=== PATIENT | female | born 1960 | race Caucasian/White ===

== ENCOUNTER 2020-07-11 14:25 | Outpatient (REF) | payer OTHER, SELFPAY | END 2020-07-11 14:26 | disposition home or self-care (01) | LOC: HO.LNP 14:25 | PROVIDERS: Visit Provider Nurse Practitioner Family | DX: Z20.828 Contact with and (suspected) exposure to other viral communicable diseases (principal) | CPT/HCPCS: U0003 ==

== ENCOUNTER 2020-07-23 09:19 | Outpatient (REF) | payer OTHER, SELFPAY | END 2020-07-23 09:20 | disposition home or self-care (01) | LOC: HO.HMGCLDS 09:19 | PROVIDERS: Visit Provider Internal Medicine | DX: Z20.828 Contact with and (suspected) exposure to other viral communicable diseases (principal) | CPT/HCPCS: C9803; U0003 ==

== ENCOUNTER 2020-08-07 09:22 | Outpatient (REF) | payer OTHER, SELFPAY | END 2020-08-07 09:23 | disposition home or self-care (01) | LOC: HO.HMGCLDS 09:22 | PROVIDERS: Visit Provider Internal Medicine | DX: Z20.828 Contact with and (suspected) exposure to other viral communicable diseases (principal) | CPT/HCPCS: C9803; U0003 ==

== ENCOUNTER 2021-03-05 17:33 | Inpatient (IN) | payer OTHER, SELFPAY ==
--- NOTE | 2021-03-05 | ECG_ITS ---
Test Reason : EPIGASTRIC PAIN Blood Pressure : / mmHG Vent. Rate : 100 BPM Atrial Rate : 100 BPM P-R Int : 134 ms QRS Dur : 070 ms QT Int : 338 ms P-R-T Axes : 036 059 034 degrees QTc Int : 436 ms Normal sinus rhythm Septal infarct (cited on or before 12-JAN-2018) Abnormal ECG When compared with ECG of 12-JAN-2018 16:58, No significant change was found Referred By: Generic ED Physician Electronically Signed By:NATASHA ESPANA
--- NOTE | ~2021-03-05 | CT_ITS ---
EXAMINATION: CT ANGIOGRAM OF THE CHEST WITH AND WITHOUT CONTRAST CT ABDOMEN PELVIS WITH CONTRAST CLINICAL INFORMATION: Reason for Exam tight pulling pain, ? aneurysm. Abdominal pain. COMPARISON: No pertinent prior studies are available for comparison. TECHNIQUE: Prior to contrast administration, noncontrast localization images were obtained. Subsequently, multidetector volumetric imaging was performed from the thoracic inlet to the pubic symphysis through the chest, abdomen, and pelvis following the administration of 85 mL Omnipaque 350 intravenous contrast. Images through the chest were obtained during the arterial phase of enhancement. Abdomen and pelvis images were obtained during the portal venous phase of enhancement. No contrast reaction reported Sagittal, coronal, and MIP oblique sagittal (through the chest only) reformatted images were obtained on the CT workstation, uploaded to PACS, and reviewed. Total exam dose-length product: 811 mGy-cm This CT examination was performed using dose optimization techniques as appropriate, variously including the following: *Automated exposure control *Adjustment of mA and/or kV according to patient size (this includes techniques or standardized protocols for targeted exams where dose is matched to indication/reason for exam; i.e. extremities or head) *Use of iterative reconstruction technique FINDINGS: VASCULATURE: THORACIC AORTA: Ascending thoracic aorta is normal in caliber, measuring up to 3.1 cm in diameter. There is mild aneurysmal dilatation beginning at the level of the isthmus where the proximal descending thoracic aorta is focally aneurysmal up to 3.2 cm in diameter. The descending thoracic aorta returns to normal caliber by the level of the left atrium (2.9 cm) and measures 2.9 cm at the level of the diaphragmatic hiatus. There is mild atherosclerotic disease in the thoracic aorta without appreciable dissection or intimal ulceration. No appreciable intramural hematomas on these images. SUPRAAORTIC ARTERIES: Normal 3 vessel branching pattern. Mild stenosis of the right subclavian artery near its origin. Common carotid arteries and vertebral arteries are patent. 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 PULMONARY ARTERIES: No central or segmental pulmonary emboli. NONVASCULAR FINDINGS: LUNG: No focal consolidation, nodules or masses. Mild dependent atelectasis. Central airways are clear. PLEURA: No pleural effusion or pneumothorax. MEDIASTINUM: Normal heart size. No pericardial effusion. No hilar or mediastinal lymphadenopathy. No evidence of septal bowing or right heart strain. Normal thyroid gland. CHEST WALL/AXILLA: No axillary or internal mammary lymphadenopathy. ABDOMEN/PELVIS: LIVER, GALLBLADDER AND BILIARY TREE: The liver is normal in size, shape, and attenuation. No focal hepatic lesion or biliary ductal dilatation is present. The gallbladder is unremarkable with no evidence of radiopaque gallstones, gallbladder wall thickening, or obvious pericholecystic inflammatory changes. PANCREAS: There is subtle fat stranding just medial to the pancreatic head, potentially due to duodenitis. Groove pancreatitis is less likely. A few punctate foci of calcification are present at the pancreatic head along the margin and at the pancreatic tail. No focal pancreatic mass lesion. No pancreatic ductal dilatation. SPLEEN: Normal size. No focal lesion. ADRENAL GLANDS: Normal; no mass. KIDNEYS AND URETERS: The kidneys are normal in size, shape, and attenuation. Multiple calcifications in the renal sinuses are favored to be vascular in nature. No discrete calculi are identified. No hydronephrosis or hydroureter. GASTROINTESTINAL TRACT: There is mild wall thickening and subtle surrounding fat stranding at the first and second portions visualized, potentially due to mild duodenitis of peptic ulcer disease. Stomach, small bowel, and colon are normal in caliber. There is mild colonic diverticulosis. No evidence of acute diverticulitis. Normal appendix. No intraperitoneal free fluid or free air. ABDOMINAL WALL: No significant hernia is appreciated. LYMPHOVASCULAR STRUCTURES: Atherosclerotic calcifications are present in the abdominal aorta and iliac arteries. No aneurysmal dilatation. BLADDER: No focal mass or wall thickening seen. No bladder calculi. PELVIC VISCERA: Normal CT appearance of the uterus. No adnexal mass seen. OSSEOUS STRUCTURES: There is marked facet arthropathy at L4-L5 with minimal grade 1 anterolisthesis of L4 on L5. Minimal degenerative disc disease in the lumbar spine. More mild to moderate degenerative disc disease is present in the thoracic spine. No acute osseous abnormalities. 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 CT/CT abdomen pelvis w con IMPRESSION: CHEST: 1. Mild aneurysmal dilatation of the proximal descending thoracic aorta (3.2 cm). No evidence of acute dissection, intramural hematoma, or rupture. No evidence of pulmonary emboli. 2. No acute pulmonary findings. ABDOMEN: 1. Bowel wall thickening in the proximal duodenum with surrounding fat stranding, most concerning for a mild focal duodenitis or peptic ulcer disease. No evidence of perforation. Primary pancreatitis with reactive duodenal inflammation is felt to be less likely, though recommend correlation with serum amylase and lipase. 2. Multiple punctate foci of parenchymal calcification which suggest changes of chronic pancreatitis. 3. Mild colonic diverticulosis without evidence of acute diverticulitis.
[2021-03-05 18:30] VITALS: BP 140/78; PULSE 106; RESP 18; TEMP 36.6; O2SAT 96; BMI 27.3
[2021-03-05 19:03] LABS: Hematocrit 46.5 % (37-47); Hemoglobin 15.4 g/dl (12.0-16.0); Mean Corpuscular HGB Conc 33.1 g/dl (31.0-35.0); Mean Corpuscular Hemoglobin 29.7 pg (27.0-33.0); Mean Corpuscular Volume 89.8 fL (80-98); Mean Platelet Volume 10.7 fL (9.4-12.3); Platelet Count 300 X10*3/uL (160-400); Red Blood Count 5.18 X10*6/uL (4.20-5.50); Red Cell Distribution Width 13.6 % (11.0-16.0); White Blood Count 13.2 X10*3/uL (4.8-10.8)
[2021-03-05 19:26] LABS: Alanine Aminotransferase 8 U/L (0-31); Albumin Level 4.4 g/dL (3.5-5.0); Alkaline Phosphatase 91 U/L (39-117); Anion Gap 15 (12-20); Aspartate Amino Transferase 15 U/L (5-31); Bilirubin Total 0.7 mg/dL (0.0-1.0); Blood Urea Nitrogen 8 mg/dL (9-16); Calcium 9.9 mg/dL (8.4-10.2); Carbon Dioxide 22 mmol/L (22-29); Chloride 107 mmol/L (96-108); Creatinine Clr Calc Pharmacy 58.8; Estimated Glomerular Filt Rate > 60; Glucose Random 145 mg/dL (60-115); Potassium 4.3 mmol/L (3.3-5.1); Sodium 140 mmol/L (135-145); Total Protein 7.7 g/dL (6.5-8.0)
[2021-03-05 19:32] LABS: Troponin-I High Sensitivity < 3.5 ng/L (<3.5-17.0)
[2021-03-05 19:56] VITALS: BP 167/65; PULSE 98; RESP 18; TEMP 37.2; O2SAT 95
--- NOTE | 2021-03-05 19:59 | PC.NURSE ---
patient a&ox3, vss, quality assurance monitor final nsr 90s, pt c/o 06/09 epigastric pain that radiates under breasts to back. denies nausea, pt states she has been constipated lately- lbm yesterday, family at bedside, will continue to monitor.
--- NOTE | 2021-03-05 20:15 | PC.NURSE ---
pt to radiology
--- NOTE | 2021-03-05 20:29 | ED_ITS ---
HPI - Abdominal Pain General Chief Complaint: Abdominal Pain Stated Complaint: pain in upper body Time Seen by Provider: 03/05/21 23:24 Source: patient Mode of arrival: ambulatory Limitations: no limitations History of Present Illness HPI narrative: 61-year-old female with past medical history of diabetes presents with 2 weeks of epigastric pain with a bandlike pressure that radiates across her abdomen into her back, poor p.o. intake, pain greater after eating, and unable to get comfortable for the past 2 days. States that she feels better curled up in a position, it does not matter what side she is on, has more pain when standing up straight or sitting. She does not report any illicit drug use or alcohol use, denies chest pain and pressure, abdominal distention, constipation, inability to pass flatus, edema, weakness, headache, or changes in vision. MD elicited complaint: abdominal pain Pertinent past history: gastritis Onset (ago): week(s) ( To) Pain Consistency: constant Location: epigastric Severity: severe Quality: aching and other ( pressure) Radiation: L flank and R flank Exacerbating factors: eating and movement Relieving factors: nothing Context: other ( of her father) Associated symptoms: nausea and anorexia Related Data Home Medications Medication Instructions Recorded Confirmed atorvastatin 10 mg tablet 10 mg PO DAILY 07/11/20 blood sugar diagnostic #10 ea 07/11/20 blood-glucose meter #1 ea 07/11/20 flu vac [id number] 36mos up(PF) ml IM 07/11/20 lancets 28 gauge #100 ea 07/11/20 metformin 500 mg tablet,extended 500 mg PO QAM 07/11/20 release 24 hr nystatin 100,000 unit/gram topical TOPICAL BID PRN 07/11/20 cream Allergies Allergy/AdvReac Type Severity Reaction Status Date / Time amoxicillin [AMOXICILLIN] Allergy Intermediate THROAT Unverified 07/11/20 09:46 CLOSES, HIVES Review of Systems Review of Systems Constitutional: No Weight loss, No Fever, No Chills, No Night Sweats, No Fatigue, No Malaise ENT/Mouth: No Hearing loss, No Ear Pain, No Nasal Congestion, No Sinus Pain, No Hoarseness, No sore throat, No Rhinorrhea, No Swallowing Difficulty Eyes: No Eye Pain, No Swelling, No Redness, No Foreign Body, No Discharge, No Vision Changes Cardiovascular: No Chest Pain, No SOB, No Dyspnea on Exertion, No Orthopnea, No Edema, No Palpitations Respiratory: No Cough, No Sputum, No Wheezing, No Smoke Exposure, No Dyspnea Gastrointestinal: Positive Nausea, no Vomiting, no Diarrhea, positive abdominal Pain, No Hematochezia, No Melena Genitourinary: no irregular bleeding, No Dysuria, No Urinary Frequency, No Hematuria, No Urinary Incontinence, No Urgency, No Flank Pain, No Urinary Flow Changes, No Hesitancy Musculoskeletal: No joint pain, No Myalgias, No Joint Swelling Skin: No Skin Lesions, No rash Neuro: No Weakness, No Numbness, No Paresthesias, No Loss of Consciousness, No Dizziness, No Headache Psych: No Anxiety/Panic, No Depression, No SI/HI/AH/VH, No Social Issues Heme/Lymph: No Bruising, No Bleeding,No Lymphadenopathy Endocrine: No Polyuria, No Polydipsia, No Temperature Intolerance Yes all other systems are reviewed and are negative Physical Exam Vital Signs: Vital Signs: Last Vital Signs Temp 99.0 F 03/05/21 19:56 Pulse 90 03/05/21 21:41 Resp 17 03/05/21 21:41 BP 160/69 H 03/05/21 21:41 Pulse Ox 93 03/05/21 21:41 Body Mass Index 27.3 Appearance: Alert. Oriented X3. moderate distress. Eyes: Pupils equal, round and reactive to light. ENT: Pharynx normal. moist mucous membranes Neck: Normal inspection. Neck supple. CVS: Normal heart rate and rhythm. Pulses normal. Respiratory: No respiratory distress. Breath sounds normal. Abdomen: Soft and tender to epigastric, right and left upper quadrants, negative psoas, no rigidity or rebound noted. Skin: Skin warm and dry. Normal skin color. Normal skin turgor. Extremities: No lower extremity edema. Moves all extremities against resistance. Neuro: No motor deficit. No sensory deficit. Cranial nerves 2-12 intact. Course Course Course Narrative: Patient presents with 2 weeks of epigastric pain with bandlike pressure radiating across the diaphragm and in the flanks. States that pain is worse after eating, and increases with sitting up and or standing. Will order chest abdomen pelvic CT with contrast to rule out aneurysm, PUD, pancreatitis, and acute abdomen. White count 13.3, other labs unremarkable. Urinalysis is negative. COVID is negative. CT scan of abdomen and pelvis and chest shows pancreatitis, duodenitis consistent with peptic ulcer disease. Discussion with hospitalist regarding plan to admit. Consultations Consultation #1: Luis Fernando PAZ - Abdominal Pain Differential Diagnosis Differential diagnosis: Likely abdominal pain, aortic dissection, acute appendicitis, calculus of kidney, diverticulitis, mesenteric ischemia, pancreati tis, peptic ulcer disease, renal colic and small bowel obstruction Medical Records Attestation: I reviewed the patient's medical records. Lab Data Attestation: I reviewed the patient's lab results. Result diagrams: 03/05/21 18:49 03/05/21 18:49 Labs: Lab Results 03/05/21 03/05/21 03/05/21 Range/Units 18:49 18:49 18:49 WBC 13.2 H (4.8-10.8) X10*3/uL RBC 5.18 (4.20-5.50) X10*6/uL Hgb 15.4 (12.0-16.0) g/dl Hct 46.5 (37-47) % MCV 89.8 (80-98) fL MCH 29.7 (27.0-33.0) pg MCHC 33.1 (31.0-35.0) g/dl RDW 13.6 (11.0-16.0) % Plt Count 300 (160-400) X10*3/uL MPV 10.7 (9.4-12.3) fL Absolute Nucleated RBC 0.000 (0.0-0.012) X10*3/uL Nucleated RBC % (auto) 0.0 (0.0-0.2) /100WBC Sodium 140 (135-145) mmol/L Potassium 4.3 (3.3-5.1) mmol/L Chloride 107 (96-108) mmol/L Carbon Dioxide 22 (22-29) mmol/L Anion Gap 15 (12-20) BUN 8 L (9-16) mg/dL Creatinine 0.86 (0.5-1.4) mg/dL Estim Creat Clear Calc 58.8 Estimated GFR > 60 Random Glucose 145 H (60-115) mg/dL Calcium 9.9 (8.4-10.2) mg/dL Total Bilirubin 0.7 (0.0-1.0) mg/dL Direct Bilirubin (0.0-0.5) mg/dL AST 15 (5-31) U/L ALT 8 (0-31) U/L Alkaline Phosphatase 91 (39-117) U/L Troponin I High Sens < 3.5 (<3.5-17.0) ng/L Total Protein 7.7 (6.5-8.0) g/dL Albumin 4.4 (3.5-5.0) g/dL Lipase (8-78) U/L Urine Color Urine Appearance Urine pH (5.0-8.0) Ur Specific [place] (1.005-1.025) Urine Protein (NEG-TRACE) MG/DL Urine Glucose (UA) (NEG) MG/DL Urine Ketones (NEG) MG/DL Urine Blood (NEG) Urine Nitrite (NEG) Ur Leukocyte Esterase (NEG) 03/05/21 03/05/21 Range/Units 21:02 21:43 WBC (4.8-10.8) X10*3/uL RBC (4.20-5.50) X10*6/uL Hgb (12.0-16.0) g/dl Hct (37-47) % MCV (80-98) fL MCH (27.0-33.0) pg MCHC (31.0-35.0) g/dl RDW (11.0-16.0) % Plt Count (160-400) X10*3/uL MPV (9.4-12.3) fL Absolute Nucleated RBC (0.0-0.012) X10*3/uL Nucleated RBC % (auto) (0.0-0.2) /100WBC Sodium (135-145) mmol/L Potassium (3.3-5.1) mmol/L Chloride (96-108) mmol/L Carbon Dioxide (22-29) mmol/L Anion Gap (12-20) BUN (9-16) mg/dL Creatinine (0.5-1.4) mg/dL Estim Creat Clear Calc Estimated GFR Random Glucose (60-115) mg/dL Calcium (8.4-10.2) mg/dL Total Bilirubin 0.7 (0.0-1.0) mg/dL Direct Bilirubin 0.2 (0.0-0.5) mg/dL AST 14 (5-31) U/L ALT 9 (0-31) U/L Alkaline Phosphatase 89 (39-117) U/L Troponin I High Sens (<3.5-17.0) ng/L Total Protein 7.6 (6.5-8.0) g/dL Albumin 4.4 (3.5-5.0) g/dL Lipase 43 (8-78) U/L Urine Color YELLOW Urine Appearance CLEAR Urine pH 6.0 (5.0-8.0) Ur Specific [place] <= 1.005 (1.005-1.025) Urine Protein NEG (NEG-TRACE) MG/DL Urine Glucose (UA) NEG (NEG) MG/DL Urine Ketones NEG (NEG) MG/DL Urine Blood NEG (NEG) Urine Nitrite NEG (NEG) Ur Leukocyte Esterase NEG (NEG) Imaging Data CT chest abdomen and pelvis: Attestation: I personally reviewed and interpreted this imaging study as follows: Radiologist's impression: FINDINGS: VASCULATURE: THORACIC AORTA: Ascending thoracic aorta is normal in caliber, measuring up to 3.1 cm in diameter. There is mild aneurysmal dilatation beginning at the level of the isthmus where the proximal descending thoracic aorta is focally aneurysmal up to 3.2 cm in diameter. The descending thoracic aorta returns to normal caliber by the level of the left atrium (2.9 cm) and measures 2.9 cm at the level of the diaphragmatic hiatus. There is mild atherosclerotic disease in the thoracic aorta without appreciable dissection or intimal ulceration. No appreciable intramural hematomas on these images. SUPRAAORTIC ARTERIES: Normal 3 vessel branching pattern. Mild stenosis of the right subclavian artery near its origin. Common carotid arteries and vertebral arteries are patent. 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 PULMONARY ARTERIES: No central or segmental pulmonary emboli. NONVASCULAR FINDINGS: LUNG: No focal consolidation, nodules or masses. Mild dependent atelectasis. Central airways are clear. PLEURA: No pleural effusion or pneumothorax. MEDIASTINUM: Normal heart size. No pericardial effusion. No hilar or mediastinal lymphadenopathy. No evidence of septal bowing or right heart strain. Normal thyroid gland. CHEST WALL/AXILLA: No axillary or internal mammary lymphadenopathy. ABDOMEN/PELVIS: LIVER, GALLBLADDER AND BILIARY TREE: The liver is normal in size, shape, and attenuation. No focal hepatic lesion or biliary ductal dilatation is present. The gallbladder is unremarkable with no evidence of radiopaque gallstones, gallbladder wall thickening, or obvious pericholecystic inflammatory changes. PANCREAS: There is subtle fat stranding just medial to the pancreatic head, potentially due to duodenitis. Groove pancreatitis is less likely. A few punctate foci of calcification are present at the pancreatic head along the margin and at the pancreatic tail. No focal pancreatic mass lesion. No pancreatic ductal dilatation. SPLEEN: Normal size. No focal lesion. ADRENAL GLANDS: Normal; no mass. KIDNEYS AND URETERS: The kidneys are normal in size, shape, and attenuation. Multiple calcifications in the renal sinuses are favored to be vascular in nature. No discrete calculi are identified. No hydronephrosis or hydroureter. GASTROINTESTINAL TRACT: There is mild wall thickening and subtle surrounding fat stranding at the first and second portions visualized, potentially due to mild duodenitis of peptic ulcer disease. Stomach, small bowel, and colon are normal in caliber. There is mild colonic diverticulosis. No evidence of acute diverticulitis. Normal appendix. No intraperitoneal free fluid or free air. ABDOMINAL WALL: No significant hernia is appreciated. LYMPHOVASCULAR STRUCTURES: Atherosclerotic calcifications are present in the abdominal aorta and iliac arteries. No aneurysmal dilatation. BLADDER: No focal mass or wall thickening seen. No bladder calculi. PELVIC VISCERA: Normal CT appearance of the uterus. No adnexal mass seen. OSSEOUS STRUCTURES: There is marked facet arthropathy at L4-L5 with minimal grade 1 anterolisthesis of L4 on L5. Minimal degenerative disc disease in the lumbar spine. More mild to moderate degenerative disc disease is present in the thoracic spine. No acute osseous abnormalities. 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 CT/CT abdomen pelvis w con IMPRESSION: CHEST: 1. Mild aneurysmal dilatation of the proximal descending thoracic aorta (3.2 cm). No evidence of acute dissection, intramural hematoma, or rupture. No evidence of pulmonary emboli. 2. No acute pulmonary findings. ABDOMEN: 1. Bowel wall thickening in the proximal duodenum with surrounding fat stranding, most concerning for a mild focal duodenitis or peptic ulcer disease. No evidence of perforation. Primary pancreatitis with reactive duodenal inflammation is felt to be less likely, though recommend correlation with serum amylase and lipase. 2. Multiple punctate foci of parenchymal calcification which suggest changes of chronic pancreatitis. 3. Mild colonic diverticulosis without evidence of acute diverticulitis. ECG Data Attestation: I personally reviewed and interpreted this ECG as follows: ECG interpretation date: 03/05/21 ECG interpretation time: 18:44 Interpretation: Vent. rate 100 BPM WI interval 134 ms QRS duration 70 ms QT/QTc 338/436 ms P-R-T axes 36 59 34 Normal sinus rhythm Septal infarct (cited on or before 12-JAN-2018) Abnormal ECG When compared with ECG of 12-JAN-2018 16:58, No significant change was found Critical Care Time Critical Care Time Critical Care Time: Yes Total Critical Care Time: 65 Attestation: I have personally provided critical care time exclusive of time spent on separately billable procedures. Time includes review of laboratory data, radiology results, discussion with consultants, and monitoring for potential decompensation. Interventions were performed as documented. Discharge Plan Discharge Clinical Impression: Acute pancreatitis, Acute duodenitis, Peptic ulcer disease Patient Disposition: Admitted As Inpatient [facility] Past Medical History Attestation statement: The following information was validated with the patient. Source: old records reviewed Medical History (Updated 03/06/21 @ 02:24 by Adrianne Mcdonough NP) Diabetes Social History Social History Alcohol intake: never Patient Tobacco Use Status: Current everyday Tobacco user Use of substances other than those prescribed or required for medical reasons: No Advance Directives: No Advance Directives Information Provided: Yes Patient : No
[2021-03-05] MEDS: ondansetron HCL 4 MG/2 ML VIAL IVPUSH (20:43)
[2021-03-05] MEDS: Morphine Sulfate 4 MG/ML CARTRIDGE IVPUSH (20:44)
[2021-03-05] MEDS: 0.9 % Sodium Chloride 1,000 ML 999 ML IVCONT (20:45)
--- NOTE | 2021-03-05 20:49 | PC.NURSE ---
iv inserted lab drawn, pt medicated per order
[2021-03-05] MEDS: iohexoL 350 MG/ML 100 ML INFUS..BTL IV (21:34)
[2021-03-05 21:41] VITALS: BP 160/69; PULSE 90; RESP 17; O2SAT 93
[2021-03-05 21:49] LABS: Alanine Aminotransferase 9 U/L (0-31); Albumin Level 4.4 g/dL (3.5-5.0); Alkaline Phosphatase 89 U/L (39-117); Aspartate Amino Transferase 14 U/L (5-31); Bilirubin Direct 0.2 mg/dL (0.0-0.5); Bilirubin Total 0.7 mg/dL (0.0-1.0); Lipase 43 U/L (8-78); Total Protein 7.6 g/dL (6.5-8.0)
[2021-03-05 21:54] LABS: Glucose Urine UA NEG (NEG); Leukocyte Esterase Urine NEG (NEG); Nitrite Urine NEG (NEG); Specific Gravity - Urine <= 1.005 (1.005-1.025); Urine Blood NEG (NEG); Urine Ketones NEG (NEG); Urine Protein NEG (NEG-TRACE)
[2021-03-05 22:06] LABS: Appearance Urine CLEAR; Color Urine YELLOW
--- NOTE | 2021-03-05 22:23 | PC.NURSE ---
pt waiting for ct scan results, pain 11/07- pt states she can still feel the pain but it has lessoned alot. at bedside, ivf continue to run slowly, will continue to monitor.
[2021-03-06] VITALS (9 sets, daily range): BP systolic 110–153; BP diastolic 45–69; PULSE 72–83; RESP 14–20; TEMP 36.1–36.7; O2SAT 93–97
--- NOTE | 2021-03-06 00:04 | PM.IMHP ---
History of Present Illness Date of Service: 03/06/21 Chief Complaint: Abdominal pain 61-year-old female with a past medical history of hyperlipidemia, diabetes presented to the hospital with a chief complaint of epigastric pain for the past few days. Patient reports that she noted sharp epigastric pain located in the upper abdomen, bandlike in nature, denies any relation with the food; lying makes little better; denies any chest pain or palpitations. Denies any diarrhea. Reports nausea. Denies any urinary symptoms. Review of all other systems is negative except mentioned above ER course: Per ER team patient noted to have abdominal tenderness more so in the epigastrium; likely is within the normal limits; CT scan showed question pancreatitis, noted duodenitis; also concern for possible peptic ulcer disease. Given PPI. On CT chest noted to have 3.2 cm aneurysm; blood pressure slightly elevated. Admitted for further management [facility] Medical History (Updated 03/15/21 @ 00:01 by Abdullahi Ku) Diabetes Social History Household Members: Spouse Housing: House Alcohol intake: never Patient Tobacco Use Status: Current everyday Tobacco user Tobacco use type: Cigarette Second Hand Smoke Exposure: No service: No Current occupational status: unemployed Meds Allergies Allergy/AdvReac Type Severity Reaction Status Date / Time amoxicillin [AMOXICILLIN] Allergy Intermediate THROAT Verified 03/06/21 09:27 MARVEL OTOOLE Active Medications: Current Medications Generic Name Dose Route Start Last Admin Trade Name Freq PRN Reason Stop Dose Admin Acetaminophen 650 mg 03/05/21 23:55 Acetaminophen 325 Mg Tablet PO Q6H PRN Pain, Mild (Pain Scale 1-3) Dextrose/Sodium Chloride 1,000 mls @ 100 mls/hr 03/05/21 23:45 D51/2ns IVCONT .Q10H [facility] Insulin Human Lispro 0 unit 03/06/21 07:30 Insulin Lispro 100 Unit/Ml 3 Ml Vial SUBCUT QIDACHS [facility] Protocol Melatonin 6 mg 03/05/21 23:55 Melatonin 3 Mg Tablet PO BEDTIME PRN Insomnia Pantoprazole Sodium 40 mg 03/06/21 06:30 Pantoprazole Sodium 40 Mg/10 Ml Vial IVPUSH BID@0630,1630 [facility] Pharmacy Consult 1 each 03/05/21 23:24 Consult Rx Perform Med Rec MISCELLANE 03/05/21 23:25 ONCE STA Senna 17.2 mg 03/05/21 23:55 Sennosides 8.6 Mg Tablet PO BEDTIME PRN Constipation Sodium Chloride 3 ml 03/06/21 00:00 0.9 % Sodium Chloride Flush 3 Ml Syringe IVFLUSH [facility] Home Medications Medication Instructions Recorded Confirmed Last Taken Type blood sugar diagnostic #10 ea 07/11/20 03/06/21 Unknown History blood-glucose meter #1 ea 07/11/20 03/06/21 Unknown History lancets 28 gauge #100 ea 07/11/20 03/06/21 Unknown History metformin 500 mg tablet,extended 500 mg PO DAILY 07/11/20 03/06/21 Unknown History release 24 hr Physical Exam Vital Signs and Narrative: Vital Signs: Last Vital Signs Temp 99.0 F 03/05/21 19:56 Pulse 90 03/05/21 21:41 Resp 17 03/05/21 21:41 BP 160/69 H 03/05/21 21:41 Pulse Ox 93 03/05/21 21:41 Body Mass Index 27.3 Gen: Appears be in no acute distress HEENT: NCAT, Moist mucosa. Pulmonary: Vesicular breath sounds, fair air entry CVS: Normal S1-S2 Abdomen: BS+, Soft, tender in epigastrium, no guarding no rigidity. Extremities: Warm well perfused Neuro: Alert and awake. Results Labs CBC and Chem 7: 03/06/21 05:51 03/06/21 05:51 Labs: Laboratory Results - last 24 hr 03/05/21 03/05/21 03/05/21 18:49 18:49 18:49 MCV 89.8 MCH 29.7 MCHC 33.1 RDW 13.6 Plt Count 300 MPV 10.7 Absolute Nucleated RBC 0.000 Nucleated RBC % (auto) 0.0 Anion Gap 15 Estim Creat Clear Calc 58.8 Estimated GFR > 60 Random Glucose 145 H Calcium 9.9 Total Bilirubin 0.7 Direct Bilirubin AST 15 ALT 8 Alkaline Phosphatase 91 Troponin I High Sens < 3.5 Total Protein 7.7 Albumin 4.4 Lipase Urine Color Urine Appearance Urine pH Ur Specific [place] Urine Protein Urine Glucose (UA) Urine Ketones Urine Blood Urine Nitrite Ur Leukocyte Esterase 03/05/21 03/05/21 21:02 21:43 MCV MCH MCHC RDW Plt Count MPV Absolute Nucleated RBC Nucleated RBC % (auto) Anion Gap Estim Creat Clear Calc Estimated GFR Random Glucose Calcium Total Bilirubin 0.7 Direct Bilirubin 0.2 AST 14 ALT 9 Alkaline Phosphatase 89 Troponin I High Sens Total Protein 7.6 Albumin 4.4 Lipase 43 Urine Color YELLOW Urine Appearance CLEAR Urine pH 6.0 Ur Specific [place] <= 1.005 Urine Protein NEG Urine Glucose (UA) NEG Urine Ketones NEG Urine Blood NEG Urine Nitrite NEG Ur Leukocyte Esterase NEG Imaging Radiologist's Impressions: Impressions Abdomen/Pelvis CT 03/05/21 20:19 IMPRESSION: CHEST: 1. Mild aneurysmal dilatation of the proximal descending thoracic aorta (3.2 cm). No evidence of acute dissection, intramural hematoma, or rupture. No evidence of pulmonary emboli. 2. No acute pulmonary findings. ABDOMEN: 1. Bowel wall thickening in the proximal duodenum with surrounding fat stranding, most concerning for a mild focal duodenitis or peptic ulcer disease. No evidence of perforation. Primary pancreatitis with reactive duodenal inflammation is felt to be less likely, though recommend correlation with serum amylase and lipase. 2. Multiple punctate foci of parenchymal calcification which suggest changes of chronic pancreatitis. 3. Mild colonic diverticulosis without evidence of acute diverticulitis. Chest CTA 03/05/21 20:35 IMPRESSION: CHEST: 1. Mild aneurysmal dilatation of the proximal descending thoracic aorta (3.2 cm). No evidence of acute dissection, intramural hematoma, or rupture. No evidence of pulmonary emboli. 2. No acute pulmonary findings. ABDOMEN: 1. Bowel wall thickening in the proximal duodenum with surrounding fat stranding, most concerning for a mild focal duodenitis or peptic ulcer disease. No evidence of perforation. Primary pancreatitis with reactive duodenal inflammation is felt to be less likely, though recommend correlation with serum amylase and lipase. 2. Multiple punctate foci of parenchymal calcification which suggest changes of chronic pancreatitis. 3. Mild colonic diverticulosis without evidence of acute diverticulitis. Assessment and Plan (1) Abdominal pain: Status: Resolved 61-year-old female with a past medical history of hyperlipidemia, diabetes presented to the hospital with a chief complaint of abdominal pain, worsens with eating, CT scan concern for duodenitis/ peptic ulcer disease; admitted to the hospital for further management. Abdominal pain: Noted duodenitis. Question peptic ulcer disease. Poor oral intake. Supportive care. NPO for now. Zofran p.r.n.. Pain control. CT scan also showed concerns for chronic pancreatitis. GI consulted for further recommendations. Patient denies any signs of bleeding. IV ppi EKG: nonischemic; 1st troponin negative; 2nd troponin pending diabetes: Insulin sliding scale descending thoracic aortic aneurysm: Currently measuring 3.[address] scan. Goal blood pressures less than 140/90. Labetalol p.r.n.. Patient blood pressure on presentation is elevated to 160/69. DVT prophylaxis: SCD boots Code status: Full code Quality Stroke Does the patient have a stroke diagnosis?: No VTE Prior VTE?: No VTE Risk Level:: Medical - moderate - high VTE Device Contraindication: N/A - Device Ordered VTE Drug Contraindication: Patient Refused
[2021-03-06] MEDS: Pantoprazole Sodium 40 MG/10 ML VIAL IVPUSH ×3 (00:14→17:35)
[2021-03-06] MEDS: LORazepam 2 MG/ML VIAL 1 MG IVPUSH (00:20)
[2021-03-06] MEDS: Morphine Sulfate 4 MG/ML CARTRIDGE IVPUSH (00:21)
[2021-03-06 01:05] LABS: COVID-19 Test Negative (Negative); IDNOW Serial# 9DD0AD1C
[2021-03-06] MEDS: Melatonin 3 MG TABLET 6 MG PO ×2 (02:44→21:24)
[2021-03-06] MEDS: Dextrose 5 % and 0.45 % NaCl 1,000 ML 100 ML IVCONT ×2 (02:45→11:56)
[2021-03-06 03:18] LABS: Troponin-I High Sensitivity < 3.5 ng/L (<3.5-17.0)
[2021-03-06 06:32] LABS: MANUAL DIFF FLAG NO
[2021-03-06 06:52] LABS: Basophils Absolute Auto 0.1 X10*3/uL (0.0-0.2); Basophils Percent Auto 0.6 % (0-2); Eosinophils Absolute Auto 0.2 X10*3/uL (0.0-0.4); Eosinophils Percent Auto 2.6 % (0-4); Hematocrit 41.5 % (37-47); Hemoglobin 13.3 g/dl (12.0-16.0); Imm Gran Abs Auto 0.11 X10*3/uL (0.00-0.03); Imm Gran Pct Auto 1.2 % (0.0-0.4); Lymphocytes Absolute Auto 3.6 X10*3/uL (1.2-4.9); Lymphocytes Percent Auto 38.3 % (20-40); Mean Corpuscular Hemoglobin 29.6 pg (27.0-33.0); Mean Corpuscular Volume 92.4 fL (80-98); Mean Platelet Volume 11.1 fL (9.4-12.3); Monocytes Absolute Auto 0.9 X10*3/uL (0.1-1.2); Monocytes Percent Auto 9.8 % (2-11); Neutrophils Absolute Auto 4.4 X10*3/uL (2.0-8.3); Neutrophils Percent Auto 47.5 % (45-73); Platelet Count 261 X10*3/uL (160-400); Red Blood Count 4.49 X10*6/uL (4.20-5.50); Red Cell Distribution Width 13.8 % (11.0-16.0); White Blood Count 9.3 X10*3/uL (4.8-10.8)
[2021-03-06 07:18] LABS: Anion Gap 13 (12-20); Blood Urea Nitrogen 8 mg/dL (9-16); Calcium 8.8 mg/dL (8.4-10.2); Carbon Dioxide 23 mmol/L (22-29); Chloride 109 mmol/L (96-108); Creatinine Clr Calc Pharmacy 64.1; Estimated Glomerular Filt Rate > 60; Glucose Random 118 mg/dL (60-115); Potassium 4.1 mmol/L (3.3-5.1); Sodium 141 mmol/L (135-145)
--- NOTE | 2021-03-06 07:33 | P.CNGI_ITS ---
History of Present Illness Data of Consult Service Date: 03/06/21 Requesting physician: [facility] Primary Care Provider: None Physician HPI Reason for consult: abdo pain 61-year-old female with a past medical history of hyperlipidemia, diabetes who I am asked to see for eval for abdo pain. She initially presented with few days epigastric pain. Sharp snd bandlike but not worse with food or eating.Asociated with nausea but no vomiting. denies any chest pain or palpitations. Denies any diarrhea but not moved any stool for few days. Pain came in waves and makes her want to move around and not be still. denies rectal bleeding, no melena. Denies any urinary symptoms. she has been taking advil PM for years , never had any anti acid medications, denies reflux ro dysphagia, weight has been stable, chronic smoker with exertional dyspnea. CT imaging: possible chronic pancreatitis with few calcifications in head and duodenitis, possible PUD. 3.2 cm aneurysm thoracic noted. Review of Systems Review of Systems: Constitutional: No Weight loss, No Fever, No Chills, No Night Sweats, No Fatigue, No Malaise ENT/Mouth: No Hearing loss, No Ear Pain, No Nasal Congestion, No Sinus Pain, No Hoarseness, No sore throat, No Rhinorrhea, No Swallowing Difficulty Eyes: No Eye Pain, No Swelling, No Redness, No Foreign Body, No Discharge, No Vision Changes Cardiovascular: No Chest Pain, No SOB, + Dyspnea on Exertion, No Orthopnea, No Edema, No Palpitations Respiratory: No Cough, No Sputum, No Wheezing, No Smoke Exposure, No Dyspnea Gastrointestinal: Positive Nausea, no Vomiting, no Diarrhea, positive abdominal Pain, No Hematochezia, No Melena Genitourinary: no irregular bleeding, No Dysuria, No Urinary Frequency, No Hematuria, No Urinary Incontinence, No Urgency, No Flank Pain, No Urinary Flow Changes, No Hesitancy Musculoskeletal: No joint pain, No Myalgias, No Joint Swelling Skin: No Skin Lesions, No rash Neuro: No Weakness, No Numbness, No Paresthesias, No Loss of Consciousness, No Dizziness, No Headache Psych: No Anxiety/Panic, No Depression, No SI/HI/AH/VH, No Social Issues Heme/Lymph: No Bruising, No Bleeding,No Lymphadenopathy Endocrine: No Polyuria, No Polydipsia, No Temperature Intolerance Yes all other systems are reviewed and are negative [facility] Past Medical History Medical History (Updated 03/06/21 @ 02:24 by Adrianne Mcdonough NP) Diabetes Social History Social History Household Members: Spouse Housing: House Alcohol intake: never Patient Tobacco Use Status: Current everyday Tobacco user Tobacco use type: Cigarette Smoked in Last 30 Days: Yes Patient Interested in Nicotine Replacement: No Patient Given Instructions on How to Stop Smoking: No Second Hand Smoke Exposure: No Use of substances other than those prescribed or required for medical reasons: No Currently Displaying Signs/Symptoms of Drug Intoxication Withdrawal: No Have you been hit, kicked, punched, or otherwise hurt by someone within the past year? If so, by whom?: No Do you feel safe in your current relationship?: Yes Is there a partner from a previous relationship who is making you feel unsafe now?: No Are you made to feel afraid or neglected: No Are you DNR?: No Advance Directives: No Advance Directives Information Provided: Yes Do you have thoughts of harming others: None Do you have a plan to hurt others: No Plan Recently lost weight without trying: No Eating poorly because of decreased appetite: No Nutrition Risks: No Nutritional Risk Patient : No : No Poor oral hygiene: No service: No Current occupational status: unemployed Meds Allergies Allergy/AdvReac Type Severity Reaction Status Date / Time amoxicillin [AMOXICILLIN] Allergy Intermediate THROAT Verified 03/06/21 09:27 CLOSES, HIVES Active Medications: Current Medications Generic Name Dose Route Start Last Admin Trade Name Freq PRN Reason Stop Dose Admin Acetaminophen 650 mg 03/05/21 23:55 Acetaminophen 325 Mg Tablet PO Q6H PRN Pain, Mild (Pain Scale 1-3) Dextrose/Sodium Chloride 1,000 mls @ 100 mls/hr 03/05/21 23:45 03/06/21 02:45 D51/2ns IVCONT 100 mls/hr .Q10H [facility] Administration Insulin Human Lispro 0 unit 03/06/21 07:30 Insulin Lispro 100 Unit/Ml 3 Ml Vial SUBCUT QIDACHS [facility] Protocol Labetalol HCl 10 mg 03/06/21 00:09 Labetalol Hcl 100 Mg/20 Ml Vial IVPUSH Q4H PRN BP>140/90 Melatonin 6 mg 03/05/21 23:55 03/06/21 02:44 Melatonin 3 Mg Tablet PO 6 mg BEDTIME PRN Administration Insomnia Pantoprazole Sodium 40 mg 03/06/21 06:30 03/06/21 05:45 Pantoprazole Sodium 40 Mg/10 Ml Vial IVPUSH 40 mg BID@0630,1630 [facility] Administration Pharmacy Consult 1 each 03/05/21 23:24 Consult Rx Perform Med Rec MISCELLANE 03/05/21 23:25 ONCE STA Senna 17.2 mg 03/05/21 23:55 Sennosides 8.6 Mg Tablet PO BEDTIME PRN Constipation Sodium Chloride 3 ml 03/06/21 00:00 03/06/21 02:53 0.9 % Sodium Chloride Flush 3 Ml Syringe IVFLUSH Not Given QSHIFT [facility] Home Medications Medication Instructions Recorded Confirmed Last Taken Type blood sugar diagnostic #10 ea 07/11/20 03/06/21 Unknown History blood-glucose meter #1 ea 07/11/20 03/06/21 Unknown History lancets 28 gauge #100 ea 07/11/20 03/06/21 Unknown History metformin 500 mg tablet,extended 500 mg PO DAILY 07/11/20 03/06/21 Unknown History release 24 hr Physical Exam Vital Signs: Vital Signs: Last Vital Signs Temp 97.0 F 03/06/21 07:14 Pulse 82 03/06/21 07:14 Resp 16 03/06/21 07:14 BP 134/64 03/06/21 07:14 Pulse Ox 95 03/06/21 07:14 Body Mass Index 27.3 EXAM: GENERAL: The patient is well developed and nontoxic. VITAL SIGNS:see workflow HEENT: Nonicteric sclerae, PERRLA, EOMI. Oropharynx clear. Moist mucous membranes. Conjunctivae appear well perfused. No thyroid mass. CHEST: Chest wall is nontender. HEART: Regular rate and rhythm without murmurs. LUNGS: nml to percussion, fine end inspiratory crackles heard ABDOMEN: Soft, positive bowel sounds, tender epigastrium, no organomegaly.no f lank tenderness SKIN: No rash, no excessive bruising, petechiae, or purpura. NEUROLOGIC: Cranial nerves II-XII intact without motor/sensory deficit. psych--nml affect Results Labs CBC & Chem 7: 03/06/21 05:51 03/06/21 05:51 Labs: Short CBC 03/05/21 03/06/21 Range/Units 18:49 05:51 WBC 13.2 H 9.3 (4.8-10.8) X10*3/uL Hgb 15.4 13.3 (12.0-16.0) g/dl Hct 46.5 41.5 (37-47) % Plt Count 300 261 (160-400) X10*3/uL BMP 03/05/21 03/06/21 18:49 05:51 Sodium 140 141 Potassium 4.3 4.1 Chloride 107 109 H Carbon Dioxide 22 23 BUN 8 L 8 L Creatinine 0.86 0.79 Calcium 9.9 8.8 D Liver Function 03/05/21 03/05/21 Range/Units 18:49 21:02 Total Bilirubin 0.7 0.7 (0.0-1.0) mg/dL Direct Bilirubin 0.2 (0.0-0.5) mg/dL AST 15 14 (5-31) U/L ALT 8 9 (0-31) U/L Alkaline Phosphatase 91 89 (39-117) U/L Albumin 4.4 4.4 (3.5-5.0) g/dL Urine 03/05/21 Range/Units 21:43 Urine Color YELLOW Urine Appearance CLEAR Urine pH 6.0 (5.0-8.0) Ur Specific [place] <= 1.005 (1.005-1.025) Urine Protein NEG (NEG-TRACE) MG/DL Urine Glucose (UA) NEG (NEG) MG/DL Assessment and Plan (1) Acute duodenitis: Status: Acute (2) Peptic ulcer disease: Status: Acute (3) Abdominal pain: Status: Acute 1/ Abdominal pain could be 2/2 PUD from chronic advil use or pancreatitis vs small bowel lesion or enteropathy, gallstones PLAN: 1/ cont with PPI 2/ analgesia as needed 3/ EGD today, if neg then MRI pancreas Procedures Date of Service Date of Service: 03/06/21
--- NOTE | 2021-03-06 08:05 | PHA.MEDREC ---
Pharmacy Consult ? Medication Reconciliation Pharmacy has completed the medication reconciliation. No remarkable issues for provider's attentions. Radha Hanson, AsherD
[2021-03-06 08:17] LABS: Glucose, Whole Blood 135 mg/dL (60-115)
--- NOTE | 2021-03-06 08:44 | HO.PM.IMPN ---
Subjective Subjective Date of Service: 03/06/21 Interval History: Seen in f/u for abdominal pain, ? duodenitis, no pain this morning Review of Systems Gen: no fever Resp: no sob, no cough CV: no chest, no JOHNSON, no leg edema GI: No n/v, no abd pain Neuro: No confusion Physical Exam Vital Signs: Vital Signs: Last Vital Signs Temp 97.0 F 03/06/21 07:14 Pulse 82 03/06/21 07:14 Resp 16 03/06/21 07:14 BP 134/64 03/06/21 07:14 Pulse Ox 95 03/06/21 07:14 Body Mass Index 27.3 Const: Other: General: AO X 3, no acute distress Resp: CTA bilateral CVS: S1,S2,RRR GI: +BS, NT, no distention Skin: No rash Neuro: motor grossly intact Psych: appropriate affect Objective Data Current Medications Generic Name Dose Route Start Last Admin Trade Name Freq PRN Reason Stop Dose Admin Acetaminophen 650 mg 03/05/21 23:55 Acetaminophen 325 Mg Tablet PO Q6H PRN Pain, Mild (Pain Scale 1-3) Dextrose/Sodium Chloride 1,000 mls @ 100 mls/hr 03/05/21 23:45 03/06/21 02:45 D51/2ns IVCONT 100 mls/hr .Q10H [facility] Administration Insulin Human Lispro 0 unit 03/06/21 07:30 03/06/21 08:14 Insulin Lispro 100 Unit/Ml 3 Ml Vial SUBCUT Not Given QIDACHS [facility] Protocol Labetalol HCl 10 mg 03/06/21 00:09 Labetalol Hcl 100 Mg/20 Ml Vial IVPUSH Q4H PRN BP>140/90 Melatonin 6 mg 03/05/21 23:55 03/06/21 02:44 Melatonin 3 Mg Tablet PO 6 mg BEDTIME PRN Administration Insomnia Pantoprazole Sodium 40 mg 03/06/21 06:30 03/06/21 05:45 Pantoprazole Sodium 40 Mg/10 Ml Vial IVPUSH 40 mg BID@0630,1630 [facility] Administration Senna 17.2 mg 03/05/21 23:55 Sennosides 8.6 Mg Tablet PO BEDTIME PRN Constipation Sodium Chloride 3 ml 03/06/21 00:00 03/06/21 08:15 0.9 % Sodium Chloride Flush 3 Ml Syringe IVFLUSH Not Given QSHIFT [facility] Labs CBC & Chem 7: 03/06/21 05:51 03/06/21 05:51 Labs: Laboratory Results - last 24 hr 03/05/21 03/05/21 03/05/21 18:49 18:49 18:49 WBC 13.2 H RBC 5.18 Hgb 15.4 Hct 46.5 MCV 89.8 MCH 29.7 MCHC 33.1 RDW 13.6 Plt Count 300 MPV 10.7 Immature Gran % (Auto) Neut % (Auto) Lymph % (Auto) [place] % (Auto) Eos % (Auto) Baso % (Auto) Lymph # (Auto) [place] # (Auto) Eos # (Auto) Baso # (Auto) Abs Immat Gran (auto) Absolute Neuts (auto) Absolute Nucleated RBC 0.000 Nucleated RBC % (auto) 0.0 Sodium 140 Potassium 4.3 Chloride 107 Carbon Dioxide 22 Anion Gap 15 BUN 8 L Creatinine 0.86 Estim Creat Clear Calc 58.8 Estimated GFR > 60 POC Glucose Random Glucose 145 H Calcium 9.9 Total Bilirubin 0.7 Direct Bilirubin AST 15 ALT 8 Alkaline Phosphatase 91 Troponin I High Sens < 3.5 Total Protein 7.7 Albumin 4.4 Lipase Urine Color Urine Appearance Urine pH Ur Specific [place] Urine Protein Urine Glucose (UA) Urine Ketones Urine Blood Urine Nitrite Ur Leukocyte Esterase COVID-19 ([facility]) COVID-19 Clin Com 03/05/21 03/05/21 03/06/21 21:02 21:43 00:46 WBC RBC Hgb Hct MCV MCH MCHC RDW Plt Count MPV Immature Gran % (Auto) Neut % (Auto) Lymph % (Auto) [place] % (Auto) Eos % (Auto) Baso % (Auto) Lymph # (Auto) [place] # (Auto) Eos # (Auto) Baso # (Auto) Abs Immat Gran (auto) Absolute Neuts (auto) Absolute Nucleated RBC Nucleated RBC % (auto) Sodium Potassium Chloride Carbon Dioxide Anion Gap BUN Creatinine Estim Creat Clear Calc Estimated GFR POC Glucose Random Glucose Calcium Total Bilirubin 0.7 Direct Bilirubin 0.2 AST 14 ALT 9 Alkaline Phosphatase 89 Troponin I High Sens Total Protein 7.6 Albumin 4.4 Lipase 43 Urine Color YELLOW Urine Appearance CLEAR Urine pH 6.0 Ur Specific [place] <= 1.005 Urine Protein NEG Urine Glucose (UA) NEG Urine Ketones NEG Urine Blood NEG Urine Nitrite NEG Ur Leukocyte Esterase NEG COVID-19 ([facility]) Negative COVID-19 Clin Com See Note 03/06/21 03/06/21 03/06/21 01:58 05:51 05:51 WBC 9.3 RBC 4.49 Hgb 13.3 Hct 41.5 MCV 92.4 MCH 29.6 MCHC 32.0 RDW 13.8 Plt Count 261 MPV 11.1 Immature Gran % (Auto) 1.2 H Neut % (Auto) 47.5 Lymph % (Auto) 38.3 [place] % (Auto) 9.8 Eos % (Auto) 2.6 Baso % (Auto) 0.6 Lymph # (Auto) 3.6 [place] # (Auto) 0.9 Eos # (Auto) 0.2 Baso # (Auto) 0.1 Abs Immat Gran (auto) 0.11 H Absolute Neuts (auto) 4.4 Absolute Nucleated RBC 0.000 Nucleated RBC % (auto) 0.0 Sodium 141 Potassium 4.1 Chloride 109 H Carbon Dioxide 23 Anion Gap 13 BUN 8 L Creatinine 0.79 Estim Creat Clear Calc 64.1 Estimated GFR > 60 POC Glucose Random Glucose 118 H Calcium 8.8 D Total Bilirubin Direct Bilirubin AST ALT Alkaline Phosphatase Troponin I High Sens < 3.5 Total Protein Albumin Lipase Urine Color Urine Appearance Urine pH Ur Specific [place] Urine Protein Urine Glucose (UA) Urine Ketones Urine Blood Urine Nitrite Ur Leukocyte Esterase COVID-19 ([facility]) COVID-19 Clin Com 03/06/21 08:12 WBC RBC Hgb Hct MCV MCH MCHC RDW Plt Count MPV Immature Gran % (Auto) Neut % (Auto) Lymph % (Auto) [place] % (Auto) Eos % (Auto) Baso % (Auto) Lymph # (Auto) [place] # (Auto) Eos # (Auto) Baso # (Auto) Abs Immat Gran (auto) Absolute Neuts (auto) Absolute Nucleated RBC Nucleated RBC % (auto) Sodium Potassium Chloride Carbon Dioxide Anion Gap BUN Creatinine Estim Creat Clear Calc Estimated GFR POC Glucose 135 H Random Glucose Calcium Total Bilirubin Direct Bilirubin AST ALT Alkaline Phosphatase Troponin I High Sens Total Protein Albumin Lipase Urine Color Urine Appearance Urine pH Ur Specific [place] Urine Protein Urine Glucose (UA) Urine Ketones Urine Blood Urine Nitrite Ur Leukocyte Esterase COVID-19 ([facility]) COVID-[address] chest abdomen and pelvis: Radiologist's impression: Impressions Abdomen/Pelvis CT 03/05/21 20:19 IMPRESSION: CHEST: 1. Mild aneurysmal dilatation of the proximal descending thoracic aorta (3.2 cm). No evidence of acute dissection, intramural hematoma, or rupture. No evidence of pulmonary emboli. 2. No acute pulmonary findings. ABDOMEN: 1. Bowel wall thickening in the proximal duodenum with surrounding fat stranding, most concerning for a mild focal duodenitis or peptic ulcer disease. No evidence of perforation. Primary pancreatitis with reactive duodenal inflammation is felt to be less likely, though recommend correlation with serum amylase and lipase. 2. Multiple punctate foci of parenchymal calcification which suggest changes of chronic pancreatitis. 3. Mild colonic diverticulosis without evidence of acute diverticulitis. Chest CTA 03/05/21 20:35 IMPRESSION: CHEST: 1. Mild aneurysmal dilatation of the proximal descending thoracic aorta (3.2 cm). No evidence of acute dissection, intramural hematoma, or rupture. No evidence of pulmonary emboli. 2. No acute pulmonary findings. ABDOMEN: 1. Bowel wall thickening in the proximal duodenum with surrounding fat stranding, most concerning for a mild focal duodenitis or peptic ulcer disease. No evidence of perforation. Primary pancreatitis with reactive duodenal inflammation is felt to be less likely, though recommend correlation with serum amylase and lipase. 2. Multiple punctate foci of parenchymal calcification which suggest changes of chronic pancreatitis. 3. Mild colonic diverticulosis without evidence of acute diverticulitis. Quality Stroke Does the patient have a stroke diagnosis?: No VTE Prior VTE?: No VTE Risk Level:: Medical - moderate - high VTE Device Contraindication: N/A - Device Ordered VTE Drug Contraindication: Patient Refused Assessment and Plan (1) Abdominal pain: Status: Acute Assessment and Plan: 61-year-old female with a past medical history of hyperlipidemia, diabetes presented to the hospital with a chief complaint of abdominal pain, worsens with eating, CT scan concern for duodenitis/ peptic ulcer disease; admitted to the hospital for further management. Abdominal pain with CT finding concerning for acute duodenitis/peptic ulcer disease, no perforation. Need GI evaluation for possible endoscopy Keep NPO for now. Lipase level is normal, no evidence of pancraitis IV PPPI diabetes: Insulin sliding scale descending thoracic aortic aneurysm: Currently measuring 3.[address] scan. Goal blood pressures less than 140/90--BP is presently within normal Labetalol p.r.n.. Patient blood pressure on presentation is elevated to 160/69. DVT prophylaxis: SCD boots Code status: Full code
--- NOTE | 2021-03-06 10:12 | MHC.CM.PN ---
NURSE CASE MANAGEMENT NOTE ELECTRONIC MEDICAL RECORD REVIEWED ALONG WITH CASE DISCUSSED WITH STAFF NURSE , AND GI PHYSICIAN MET WITH PATIENT AND WITH HER PERMISSION HER REMAINED PRESENT, PATIENT IS ACTIVE , INDEPENDENT IN ALL ADLS AND MOBILITY ,SHE HAS NO SERVICES IN THE HOME, SHE REPORTED SHE HAS A HEALTH CARE PROXY AND HAS NAMED HER JANIA HER AGENT , REQUESTED COPY BE BROUGHT IN OR MA[place] [facility]. PATIENT WAS ADMITTED WITH ABDOMINAL PAIN PER CT ABDOMEN DOCUMENTATION CT IMAGING CHRONIC PANCREATITIS AND DUODENITIS, POSSIBLE PUD, 3.2 CM ANEURYSM THORAIC NOTED. DISCHARGE PLAN 1. PCP DR DARRIN GREGORY PATIENT TO CALL FOR POST HOSPITAL DISCHARGE FOLLOW UP HOME WITH NO SERVICES TRANSPORTATION FAMILY FOLLOW UP[ WITH GI PHYSICIAN PER DISCHARGE INSTRUCTIONS NAME CARD GIVEN TO HER REQUESTED COPY OF THE HCP BE BROUGHT IN OR [place] [facility]
[2021-03-06 11:30] LABS: Glucose, Whole Blood 132 mg/dL (60-115)
--- NOTE | 2021-03-06 13:20 | HO.ANESPROP2 ---
[facility] Active Problems Active Problems: All Active Problems (Updated 03/06/21 @ 02:24 by Adrianne Mcdonough NP) Acute pancreatitis (Acute) Acute duodenitis (Acute) Peptic ulcer disease (Acute) Abdominal pain (Acute) Exposure to COVID-19 virus (Acute) Past Medical History Medical History (Updated 03/06/21 @ 02:24 by Adrianne Mcdonough NP) Diabetes Social History Social History Household Members: Spouse Housing: House Alcohol intake: never Patient Tobacco Use Status: Current everyday Tobacco user Smoked in Last 30 Days: Yes Patient Interested in Nicotine Replacement: No Patient Given Instructions on How to Stop Smoking: No Second Hand Smoke Exposure: No Use of substances other than those prescribed or required for medical reasons: No Currently Displaying Signs/Symptoms of Drug Intoxication Withdrawal: No Have you been hit, kicked, punched, or otherwise hurt by someone within the past year? If so, by whom?: No Do you feel safe in your current relationship?: Yes Is there a partner from a previous relationship who is making you feel unsafe now?: No Are you made to feel afraid or neglected: No Advance Directives: No Advance Directives Information Provided: Yes Do you have thoughts of harming others: None Do you have a plan to hurt others: No Plan Recently lost weight without trying: No Eating poorly because of decreased appetite: No Nutrition Risks: No Nutritional Risk Patient : No : No Poor oral hygiene: No service: No Current occupational status: unemployed Meds Allergies Allergy/AdvReac Type Severity Reaction Status Date / Time amoxicillin [AMOXICILLIN] Allergy Intermediate THROAT Verified 03/06/21 09:27 CLOSES, HIVES Active Medications: Current Medications Generic Name Dose Route Start Last Admin Trade Name Freq PRN Reason Stop Dose Admin Acetaminophen 650 mg 03/05/21 23:55 Acetaminophen 325 Mg Tablet PO Q6H PRN Pain, Mild (Pain Scale 1-3) Dextrose/Sodium Chloride 1,000 mls @ 100 mls/hr 03/05/21 23:45 03/06/21 11:56 D51/2ns IVCONT 100 mls/hr .Q10H FAUSTINO Administration Lactated Ringer's 1,000 mls @ 50 mls/hr 03/06/21 13:30 Lr IVCONT .Q20H FAUSTINO Insulin Human Lispro 0 unit 03/06/21 07:30 03/06/21 11:35 Insulin Lispro 100 Unit/Ml 3 Ml Vial SUBCUT Not Given QIDACHS [facility] Protocol Labetalol HCl 10 mg 03/06/21 00:09 Labetalol Hcl 100 Mg/20 Ml Vial IVPUSH Q4H PRN BP>140/90 Melatonin 6 mg 03/05/21 23:55 03/06/21 02:44 Melatonin 3 Mg Tablet PO 6 mg BEDTIME PRN Administration Insomnia Pantoprazole Sodium 40 mg 03/06/21 06:30 03/06/21 05:45 Pantoprazole Sodium 40 Mg/10 Ml Vial IVPUSH 40 mg BID@0630,1630 [facility] Administration Senna 17.2 mg 03/05/21 23:55 Sennosides 8.6 Mg Tablet PO BEDTIME PRN Constipation Sodium Chloride 3 ml 03/06/21 00:00 03/06/21 08:15 0.9 % Sodium Chloride Flush 3 Ml Syringe IVFLUSH Not Given QSHIFT [facility] Home Medications Medication Instructions Recorded Confirmed Last Taken Type blood sugar diagnostic #10 ea 07/11/20 03/06/21 Unknown History blood-glucose meter #1 ea 07/11/20 03/06/21 Unknown History lancets 28 gauge #100 ea 07/11/20 03/06/21 Unknown History metformin 500 mg tablet,extended 500 mg PO DAILY 07/11/20 03/06/21 Unknown History release 24 hr Exam Exam Date and Time: March 06, 2021 1320 Height,Weight and Vital Signs: Height 5 ft 1 in Weight 65.771 kg Last Vital Signs Temp 97.3 F 03/06/21 11:05 Pulse 78 03/06/21 11:05 Resp 18 03/06/21 11:05 BP 110/55 L 03/06/21 11:05 Pulse Ox 94 03/06/21 11:05 Pertinent Lab Results Pertinent Lab Results: Laboratory Tests 03/05/21 03/05/21 03/05/21 18:49 18:49 18:49 WBC 13.2 H RBC 5.18 Hgb 15.4 Hct 46.5 MCV 89.8 MCH 29.7 MCHC 33.1 RDW 13.6 Plt Count 300 MPV 10.7 Immature Gran % (Auto) Neut % (Auto) Lymph % (Auto) [place] % (Auto) Eos % (Auto) Baso % (Auto) Lymph # (Auto) [place] # (Auto) Eos # (Auto) Baso # (Auto) Abs Immat Gran (auto) Absolute Neuts (auto) Absolute Nucleated RBC 0.000 Nucleated RBC % (auto) 0.0 Sodium 140 Potassium 4.3 Chloride 107 Carbon Dioxide 22 Anion Gap 15 BUN 8 L Creatinine 0.86 Estim Creat Clear Calc 58.8 Estimated GFR > 60 POC Glucose Random Glucose 145 H Calcium 9.9 Total Bilirubin 0.7 Direct Bilirubin AST 15 ALT 8 Alkaline Phosphatase 91 Troponin I High Sens < 3.5 Total Protein 7.7 Albumin 4.4 Lipase Urine Color Urine Appearance Urine pH Ur Specific [place] Urine Protein Urine Glucose (UA) Urine Ketones Urine Blood Urine Nitrite Ur Leukocyte Esterase COVID-19 (JOSE) COVID-19 [place] 03/05/21 03/05/21 03/06/21 21:02 21:43 00:46 WBC RBC Hgb Hct MCV MCH MCHC RDW Plt Count MPV Immature Gran % (Auto) Neut % (Auto) Lymph % (Auto) [place] % (Auto) Eos % (Auto) Baso % (Auto) Lymph # (Auto) [place] # (Auto) Eos # (Auto) Baso # (Auto) Abs Immat Gran (auto) Absolute Neuts (auto) Absolute Nucleated RBC Nucleated RBC % (auto) Sodium Potassium Chloride Carbon Dioxide Anion Gap BUN Creatinine Estim Creat Clear Calc Estimated GFR POC Glucose Random Glucose Calcium Total Bilirubin 0.7 Direct Bilirubin 0.2 AST 14 ALT 9 Alkaline Phosphatase 89 Troponin I High Sens Total Protein 7.6 Albumin 4.4 Lipase 43 Urine Color YELLOW Urine Appearance CLEAR Urine pH 6.0 Ur Specific [place] <= 1.005 Urine Protein NEG Urine Glucose (UA) NEG Urine Ketones NEG Urine Blood NEG Urine Nitrite NEG Ur Leukocyte Esterase NEG COVID-19 (JOSE) Negative COVID-19 [employer] See Note 03/06/21 03/06/21 03/06/21 01:58 05:51 05:51 WBC 9.3 RBC 4.49 Hgb 13.3 Hct 41.5 MCV 92.4 MCH 29.6 MCHC 32.0 RDW 13.8 Plt Count 261 MPV 11.1 Immature Gran % (Auto) 1.2 H Neut % (Auto) 47.5 Lymph % (Auto) 38.3 Wh[place] % (Auto) 9.8 Eos % (Auto) 2.6 Baso % (Auto) 0.6 Lymph # (Auto) 3.6 [place] # (Auto) 0.9 Eos # (Auto) 0.2 Baso # (Auto) 0.1 Abs Immat Gran (auto) 0.11 H Absolute Neuts (auto) 4.4 Absolute Nucleated RBC 0.000 Nucleated RBC % (auto) 0.0 Sodium 141 Potassium 4.1 Chloride 109 H Carbon Dioxide 23 Anion Gap 13 BUN 8 L Creatinine 0.79 Estim Creat Clear Calc 64.1 Estimated GFR > 60 POC Glucose Random Glucose 118 H Calcium 8.8 D Total Bilirubin Direct Bilirubin AST ALT Alkaline Phosphatase Troponin I High Sens < 3.5 Total Protein Albumin Lipase Urine Color Urine Appearance Urine pH Ur Specific [place] Urine Protein Urine Glucose (UA) Urine Ketones Urine Blood Urine Nitrite Ur Leukocyte Esterase COVID-19 (JOSE) COVID-19 [place] 03/06/21 03/06/21 08:12 11:14 WBC RBC Hgb Hct MCV MCH MCHC RDW Plt Count MPV Immature Gran % (Auto) Neut % (Auto) Lymph % (Auto) [place] % (Auto) Eos % (Auto) Baso % (Auto) Lymph # (Auto) [place] # (Auto) Eos # (Auto) Baso # (Auto) Abs Immat Gran (auto) Absolute Neuts (auto) Absolute Nucleated RBC Nucleated RBC % (auto) Sodium Potassium Chloride Carbon Dioxide Anion Gap BUN Creatinine Estim Creat Clear Calc Estimated GFR POC Glucose 135 H 132 H Random Glucose Calcium Total Bilirubin Direct Bilirubin AST ALT Alkaline Phosphatase Troponin I High Sens Total Protein Albumin Lipase Urine Color Urine Appearance Urine pH Ur Specific [place] Urine Protein Urine Glucose (UA) Urine Ketones Urine Blood Urine Nitrite Ur Leukocyte Esterase COVID-19 (JOSE) COVID-19 Clin Com Airway Mallampati Class: II (Edentulous on top) TM Dist: >3cm Neck ROM: Full Heart: rrr Lungs: cta Assessment and Plan Assessment Anesthesia Assessment: Anesthesia Plan Discussed and Chart Reviewed Final Anesthetic Review NPO: Yes ASA Class: III Final Preanesthetic Review: No Changes in Pt Med Stat and Consent Obtained/Reviewed Patient Risk: Intermediate Procedure Risk: Intermediate Anesthetic Plan Anesthetic Plan: MAC: Disposition: Standard PACU
[2021-03-06 13:24] LABS: Glucose, Whole Blood 120 mg/dL (60-115)
[2021-03-06] MEDS: Lactated Ringers 1,000 ML 50 ML IVCONT (13:30)
--- NOTE | 2021-03-06 13:39 | MHC.SHP ---
Pre-Procedural Eval Section A Date of Service: 03/06/21 The patient is an INPATIENT: Yes The History & Physical has been completed within 30 days and I have reviewed it.: Yes Section B Chief Complaint: Abd pain Allergies: Allergies Allergy/AdvReac Type Severity Reaction Status Date / Time amoxicillin [AMOXICILLIN] Allergy Intermediate THROAT Verified 03/06/21 09:27 CLOSES, HIVES Plan Diagnosis/Plan: Unchanged I have reviewed the history and physical and performed a pertinent physical examination on my patient. No changes have occurred unless specified.
--- NOTE | 2021-03-06 13:39 | PM.OP ---
Brief Operative Note Date of Service: 03/06/21 Pre-op diagnosis: abdominal pain, abn imaging of duodenum Post-op diagnosis: same Procedure: see op note Surgeon: Monica Yarbrough MD Anesthesia: MAC Was an Political Anthropologist used for this Procedure?: No Estimated blood loss (mL): 0 Condition: stable Disposition: PACU
--- NOTE | 2021-03-06 13:40 | W.PM.OPN ---
Operative Note Operative Note Date of Service: 03/06/21 Narrative: Procedure Description: EGD FLEXIBLE TRANSORAL UPPER GASTROINTESTINAL ENDOSCOPY UPPER ENDOSCOPY Consent: Indications for the procedure and potential complications of bleeding, perforation, reaction to medications and missed diagnosis were discussed with the patient and informed consent was obtained. Instrument: Olympus GIF H 190 J mid size upper endoscope Monitoring: Vital signs and clinical assessment, continuous EKG monitoring, Pulse oximetry, Carbon Dioxide monitoring and blood pressure monitoring were done throughout the procedure. Procedure: The patient was placed in the left lateral decubitis position and pre-procedure medications were administered and a bite block was placed. The endoscope was inserted into the mouth and advanced under direct vision to the third part of duodenum. A careful inspection was made as the upper endoscope was withdrawn including a retroflexed examination of the proximal stomach; Findings and interventions are described below. Findings: Larynx:normal Esophagus: GE junction at 38 cm, diaphragm hiatus at 38 cm, mild esophagitis noted Stomach: Patchy gastric erythema and pallor with mucosal edema . Biopsies were obtained and tissue felt rubbery. Grade 2 flap valve on retroflexed examination of the cardia. Duodenum: 10-12 mm izabel grade III duodenal ulcer on the [place] superior wall, no bleeding or visible vessels seen Intervention: Biopsies as noted above Impression/Findings: izabel grade III duodenal ulcer prob 2/2 NSAID use esophagitis gastric mucosal edema and pallor could be sign of ischemia, low blood flow state, infiltrative stomach disease e.g eosinophilic gastritis PLAN: High dose PPI e.g pantoprazole 40 mg bid for 3 months then can titrate down smoking cessation await bx results avoid nsaids if h pylori pos then treat
[2021-03-06 15:56] LABS: Glucose, Whole Blood 114 mg/dL (60-115)
[2021-03-06] MEDS: Sennosides 8.6 MG TABLET 17.2 MG PO (17:35)
[2021-03-06 20:02] LABS: Glucose, Whole Blood 144 mg/dL (60-115)
[2021-03-07] MEDS: Pantoprazole Sodium 40 MG/10 ML VIAL IVPUSH (06:16)
[2021-03-07 07:07] VITALS: BP 141/64; PULSE 74; RESP 16; TEMP 36.2; O2SAT 96
[2021-03-07 07:23] LABS: Glucose, Whole Blood 104 mg/dL (60-115)
--- NOTE | 2021-03-07 11:15 | PM.DS ---
DS: Providers Provider Date of Service: 03/07/21 Date of admission: 03/05/21 23:55 Primary care physician: None Physician Consults: 03/05/21 23:55 Consult to Gastroenterology Routine Consulting Provider: Monica Yarbrough Reason for consultation: abd apin; ?PUD DS: Diagnosis Discharge Diagnosis (1) Acute duodenitis: Status: Acute (2) Peptic ulcer disease: Status: Acute (3) Abdominal pain: Status: Acute DS: Medications Discharge Medications Home Medications: Home Medications Medication Instructions Recorded Confirmed blood sugar diagnostic #10 ea 07/11/20 03/06/21 blood-glucose meter #1 ea 07/11/20 03/06/21 lancets 28 gauge #100 ea 07/11/20 03/06/21 metformin 500 mg tablet,extended 500 mg PO DAILY 07/11/20 03/06/21 release 24 hr Previous Rx's Medication Instructions Recorded pantoprazole [Protonix] 40 mg PO BID 30 Days #60 tab 03/07/21 DS: Summary Hospital Course Hospital Course: Admission HPI: Abdominal pain 61-year-old female with a past medical history of hyperlipidemia, diabetes presented to the hospital with a chief complaint of epigastric pain for the past few days. Patient reports that she noted sharp epigastric pain located in the upper abdomen, bandlike in nature, denies any relation with the food; lying makes little better; denies any chest pain or palpitations. Denies any diarrhea. Reports nausea. Denies any urinary symptoms. CT of abdomen show possible duodenitis, gastritis, and ? chronic pancreatitis, patient doesn't drink alcohol and Lipase was normal. Hospital course: Patient was admitted and treated with IV PPI, she had EGD by Dr. Yarbrough on 03/06 and noted to have izabel grade III duodenal ulcer prob 2/2 NSAID use esophagitis gastric mucosal edema and pallor could be sign of ischemia, low blood flow state, infiltrative stomach disease e.g eosinophilic gastritis and the following recommendation by GI PLAN: High dose PPI e.g pantoprazole 40 mg bid for 3 months then can titrate down smoking cessation await bx results avoid nsaids if h pylori pos then treat. . Patient is at this point is not having pain and tolerating regular food, smoking cessation discussed with her and ask to follow up with Dr. Yarbrough. There is no evidence of pancreatitis Time Spent with Patient Time attestation: Total time spent providing and/or coordinating discharge services: Discharge coordination time: Greater than 30 minutes Quality: Stroke Does the patient have a stroke diagnosis?: No Physical Exam Vital Signs: Vital Signs: Last Vital Signs Temp 97.2 F 03/07/21 07:07 Pulse 74 03/07/21 07:07 Resp 16 03/07/21 07:07 BP 141/64 H 03/07/21 07:07 Pulse Ox 96 03/07/21 07:07 Body Mass Index 27.3 DS: Data Data Completed and Pending Pending studies at discharge: Pending at discharge 03/06/21 14:15 Surgical [PTH] Routine Labs on day of discharge: Laboratory Results - last 24 hr 03/06/21 03/06/21 03/06/21 11:14 13:20 15:51 POC Glucose 132 H 120 H 114 03/06/21 03/07/21 19:55 07:10 POC Glucose 144 H 104 Discharge Plan Discharge Anticipated Discharge Date/Time: 03/07/21 11:00 Patient Disposition: Home, Self-Care Discharge Diagnosis: Acute Referrals: Physician,None [Primary Care Provider] - 1 Week Monica Yarbrough MD [Physician] - 2 Weeks (call for appointment) Discharge Medications: New pantoprazole [Protonix] 40 mg tablet,delayed release (DR/EC) 40 mg PO BID 30 Days Qty: 60 RF: 0 Continued (DME) blood sugar diagnostic Strip See Rx Instructions ea Not Applicable QAM Qty: 10 RF: 0 metformin 500 mg tablet extended release 24 hr 500 mg PO DAILY RF: 0 (DME) lancets 28 gauge misc See Rx Instructions ea topical QAM Qty: 100 RF: 0 (DME) blood-glucose meter Kit See Rx Instructions ea .ROUTE QAM Qty: 1 RF: 0 Discharge Orders: Discharge Order (Routine); Ordered 03/07/21 Ordered By: Moiz Blanco Diet: advance to usual diet and diabetic diet Activity on Discharge: As tolerated Stand Alone Forms: Patient Portal Discharge page Care Plan Goals: Prevent rehospitalization Health Concerns: gastritis, Plan of Treatment: Take Protonix 40 bid for 3 months before going down on it Follow up with Dr. Yarbrough, stop smoking Assessment: as above
--- NOTE | 2021-03-07 11:25 | MHC.CM.PN ---
NURSE CONSUMER SAFETY INSPECTOR NOTE ELECTRONIC MEDICAL RECORD AND DISCHARGE INSTRUCTIONS REVIEWED CASE DISCUSSED WITH HOSPITLAIST ON ROUNDS. PATIENT TO BE DISCHARGED HOME TODAY NO SERVICES DISCHARGE PLAN HOME NO SERVICES PCP DR DARRIN LANDA PATIENT INSTRUCTED TO CALL FOR POST HOSPITAL DISCHARGE APPOINTMENT FOLLOW UP WITH GI PER DISCHARGE INSTRUCTIONS TRANSPORTATION FAMILY
== END 2021-03-07 12:00 | disposition home or self-care (01) | DRG 241 ==
LOC: HO.ED 03-06 00:34 → HO.EDOVER 03-06 01:10 → HO.S3 03-06 01:13
PROVIDERS: Internal Medicine Gastroenterology; Nurse Practitioner Family; Admitting Provider Hospitalist; Emergency Provider Emergency Medicine; PCP Internal Medicine; Visit Provider Internal Medicine
PROC: 0DJ08ZZ Inspection of Upper Intestinal Tract, Via Natural or Artificial Opening Endoscopic (ICD-10-PCS; CPT 43235; principal; 2021-03-06 14:30)
DX: K29.80 Duodenitis without bleeding (principal); K26.9 Duodenal ulcer, unspecified as acute or chronic, without hemorrhage or perforation; I71.2 Thoracic aortic aneurysm, without rupture; K20.90 Esophagitis, unspecified without bleeding; F17.210 Nicotine dependence, cigarettes, uncomplicated; T39.395A Adverse effect of other nonsteroidal anti-inflammatory drugs [NSAID], initial encounter; Z20.822 Contact with and (suspected) exposure to COVID-19; Z71.6 Tobacco abuse counseling; Z88.0 Allergy status to penicillin; Z79.84 Long term (current) use of oral hypoglycemic drugs; Z79.899 Other long term (current) drug therapy
CPT/HCPCS: 43239; 36415; 71275; 74177; 80048; 80053; 80076; 81003; 82947; 83690; 84484; 85025; 85027; 87635; 88305; 88342; 93005; 99218; 99285; J2060; J2270; J2405; Q9967

== ENCOUNTER 2023-01-17 11:51 | Outpatient (REF) | payer OTHER, SELFPAY ==
[2023-01-17 13:52] LABS: Appearance Urine Clear; Color Urine Yellow; Glucose Urine UA Negative (Negative); Leukocyte Esterase Urine Large (3+) (Negative); Nitrite Urine Positive (Negative); Specific Gravity - Urine 1.015 (1.005-1.025); UMIC TRIGGER UACC YES; Urine Blood Small (1+) (Negative); Urine Ketones Negative (Negative); Urine Protein 30 (1+) mg/dL (Neg-Trace)
[2023-01-17 13:59] LABS: Bacteria Urine 3+ (None Seen); Hyaline Casts Urine 0-2 /LPF (0-2); Squamous Epithelial Cell Urine 0-2 /HPF (0-2); UACC Culture Trigger YES; WBC Urine >50 /HPF (0-5)
== END 2023-01-17 11:52 | disposition home or self-care (01) ==
LOC: HO.LAB 11:51
PROVIDERS: Visit Provider Physician Assistant Medical
DX: R30.0 Dysuria (principal)
CPT/HCPCS: 81001; 87086; 87088; 87186

== ENCOUNTER 2024-08-29 08:57 | Outpatient (AMB) | payer MEDICARE, SELFPAY ==
--- NOTE | 2024-08-29 09:19 | AM.OFFWIN_ITS ---
Intake Vital Signs 08/29/24 09:26 Height 5 ft BP 120/72 Blood Pressure Location Lt brachial Position Sitting Pulse 100 Pulse Source Pulse Oximeter Temp 97.9 F Temp Source Oral Pulse Oximetry (%) 98 Oxygen Delivery Method Room Air Intake Visit Reasons: EP UTI? Intake Note: Patient here for frequent urination, burning and pain that has been present for about 3 days. Patient Tobacco Use Status: Current everyday Tobacco user Allergies amoxicillin [AMOXICILLIN] Allergy (Intermediate, Verified 08/29/24 09:25) THROAT CLOSES, HIVES Do you need a note to return to daycare/school/sports/work: No HPI EP UTI? HPI Details This note is constructed using voice recognition software. While every effort has been made to ensure accuracy, pet resort concierge errors may have been included. The patient is a 64 year old female who presents to the clinic today with urinary frequency, urgency, and burning on urination for the past 4 days. She reports that she started Uqora which does alter the color of her urine, taking a dose within the past 12 hours. She denies fever, chills, back pain. She has not had a urinary tract infection in at least 4 years. She is postmenopausal and does have her uterus intact. [facility] Medical History Diabetes Social History Household Members: Spouse Housing: House Alcohol intake: never Patient Tobacco Use Status: Current everyday Tobacco user Tobacco use type: Cigarette Second Hand Smoke Exposure: No service: No Current occupational status: unemployed Review of Systems Const All systems reviewed & are unremarkable except as noted in HPI and below Physical Exam Vital Signs: Last Vital Signs Temp 97.9 F 08/29/24 09:26 Pulse 100 08/29/24 09:26 BP 120/72 08/29/24 09:26 Pulse Ox 98 08/29/24 09:26 Oxygen Delivery Method Room Air 08/29/24 09:26 Const General: cooperative, healthy appearing, comfortable, no acute distress and alert Orientation/consciousness: patient oriented x3 Limitations: no limitations Resp Effort & Inspection: normal respiratory effort and able to speak in complete sentences Other: Deferred General: Yes no CVA tenderness Back/Spine/Pelvis Back: no CVA tenderness Skin General skin exam: no rashes or lesions noted, elasticity normal and turgor normal Neuro General: patient oriented x3 Psych Appearance: grossly normal Mental Status: mental status grossly normal Speech and movement: Normal speech and movement present Affect: normal affect Results AMB Urinalysis, Automated UA Leukoctes 0 Nickolas/uL Last Edit by MAIDA Polanco on 08/29/24 09:51 UA Nitrite Negative Last Edit by Jeffrey Kwan [facility] on 08/29/24 09:51 UA Urobilinogen 0.2 mg/dL Last Edit by Jeffrey Kwan [facility] on 08/29/24 09:51 UA Protein 0 mg/dL Last Edit by Jeffrey Kwan [facility] on 08/29/24 09:51 UA pH 6.0 Last Edit by Jeffrey Kwan [facility] on 08/29/24 09:51 UA Blood 200 Anastacio/uL Last Edit by Jeffrey Kwan [facility] on 08/29/24 09:51 UA Specific [place] 1.010 Last Edit by Jeffrey Kwan [facility] on 08/29/24 09:51 UA Ketone Negative Last Edit by Jeffrey Kwan [facility] on 08/29/24 09:51 UA Bilirubin 0 mg/dL Last Edit by Jeffrey Kwan [facility] on 08/29/24 09:51 UA Glucose 0 mg/dL Last Edit by Jeffrey Kwan [facility] on 08/29/24 09:51 Assessment & Plan Assessment & Plan (1) UTI (urinary tract infection): Code(s): N39.0 - Urinary tract infection, site not specified Qualifiers: Hematuria presence: with hematuria Urinary tract infection type: acute cystitis Qualified Code(s): N30.01 - Acute cystitis with hematuria Plan: Treatment based on symptoms as she has taken medication within the last 12 hours that would alter the collar and altered the results of a urinalysis. Advised to increase hydration. Antibiotics sent to requested pharmacy. Urine sent for culture and analysis. Additionally we discussed blood in urine alone as a concern for kidney stone versus uterus as source of blood. Advised patient to follow up with PCP for ongoing symptoms, and that she may benefit from repeat urinalysis after treatment for resolution hematuria. Orders: Orders UA CC w/rflx Micro + Cult Today R30.0 - Dysuria Medications: New nitrofurantoin monohyd/m-cryst 100 mg must administer with a meal/food 100 mg PO Q12H 5 days 10 caps 0RF Coding Level of Care Code Est Pt Level 3 (60935) Diagnoses Acute cystitis with hematuria N30.01 Hematuria presence: with hematuria Urinary tract infection type: acute cystitis
[2024-08-29 09:26] VITALS: BP 120/72; PULSE 100; TEMP 36.6; O2SAT 98
== END 2024-08-29 10:03 | disposition home or self-care (01) ==
PROVIDERS: PCP Internal Medicine; Visit Provider Registered Nurse
DX: Z13.9 Encounter for screening, unspecified (principal); N30.01 Acute cystitis with hematuria